=== PATIENT | male | born 1965 | race Hispanic/Latino ===

== ENCOUNTER 2019-03-26 11:21 | Emergency (ER) | payer OTHER ==
[~2019-03-26] VITALS: Ht 170.2 cm; Wt 99.8 kg
[2019-03-26] MEDS ORDERED: SODIUM CHLORIDE 0.9% 1000ML 1,000 ML IV STA (11:48)
[2019-03-26] MEDS ORDERED: KETOROLAC TROMETHAMINE 30 MG/ML VIAL IV STA (11:48)
[2019-03-26 12:04] LABS: BASOPHILS % 0.4 % (0.0-1.0); EOSINOPHILS # (AUTO) 0.5 (0.0-0.4); EOSINOPHILS % 4.1 % (0.0-6.0); HEMATOCRIT 43.3 % (38.2-49.6); HEMOGLOBIN 14.4 g/dL (14.0-18.0); LYMPHOCYTES # (AUTO) 3.9 (1.0-3.2); LYMPHOCYTES % 34.1 % (18.0-39.1); MEAN CORPUSCULAR HEMOGLOBIN 30.6 pg (28-32); MEAN CORPUSCULAR HGB CONC 33.3 g/dL (31-35); MEAN CORPUSCULAR VOLUME 91.9 fL (81-99); MONOCYTES # (AUTO) 1.1 (0.2-0.8); MONOCYTES % 9.4 % (4.4-11.3); NEUTROPHILS # (AUTO) 5.9 (2.1-6.9); NEUTROPHILS % 51.7 % (38.7-80.0); PLATELET COUNT 202 x10e3/uL (140-360); RED BLOOD COUNT 4.71 x10e6/uL (4.3-5.7); RED CELL DISTRIBUTION WIDTH 12.8 % (11.7-14.4)
[2019-03-26 12:06] LABS: BILIRUBIN,URINE NEGATIVE (NEGATIVE); CLARITY,URINE CLEAR (CLEAR); COLOR,URINE YELLOW (YELLOW); KETONES,URINE NEGATIVE (NEGATIVE); LEUKOCYTE ESTERASE ,URINE TRACE (NEGATIVE); NITRITE,URINE NEGATIVE (NEGATIVE); PROTEIN,URINE DIPSTICK NEGATIVE (NEGATIVE); URINE UROBILINOGEN 0.2 mg/dL (0.2 - 1)
[2019-03-26 12:20] LABS: WBC,URINE (MAN) 21-50 /HPF (0-5)
[2019-03-26 12:21] LABS: BACTERIA,URINE FEW /HPF; EPITHELIAL CELLS,URINE RARE /LPF; RBC,URINE 0-5 /HPF (0-5)
[2019-03-26 12:27] LABS: ALBUMIN 3.7 g/dL (3.5-5.0); ALBUMIN/GLOBULIN RATIO 1.3 (0.8-2.0); CALCIUM 9.2 mg/dL (8.4-10.2); CREATININE, SERUM 1.33 mg/dL (0.72-1.25); INR 0.92; PROTHROMBIN TIME 12.8 seconds (11.9-14.5)
[2019-03-26 12:28] LABS: PARTIAL THROMBOPLASTIN TIME 33.7 seconds (23.8-35.5)
[2019-03-26 12:34] LABS: CREATINE KINASE MB 2.4 ng/mL (0-5.0)
--- NOTE | 2019-03-26 13:02 | Diagnostic Imaging Report ---
EXAM: CT Abdomen and Pelvis WITHOUT intravenous contrast INDICATION: Flank pain COMPARISON: None. TECHNIQUE: Abdomen and pelvis were scanned utilizing a multidetector helical scanner from the lung base to the pubic symphysis without administration of IV contrast. Coronal and sagittal reformations were obtained. IV CONTRAST: None ORAL CONTRAST: Water COMPLICATIONS: None RADIATION DOSE: Total DLP: 768.3 mGy*cm Dose modulation, iterative reconstruction, and/or weight based adjustment of the mA/kV was utilized to reduce the radiation dose to as low as reasonably achievable. FINDINGS: LOWER THORAX: Normal. HEPATOBILIARY: No focal liver lesion. Status post cholecystectomy. SPLEEN: No splenomegaly. PANCREAS: No focal masses or ductal dilatation. ADRENALS: No adrenal nodules. KIDNEYS/URETERS: 6 mm right distal ureter calculus just proximal to the ureterovesical junction with associated upstream mild hydroureteronephrosis. No left renal calculi. No left hydronephrosis or hydroureter. PELVIC ORGANS/BLADDER: Prostatomegaly to 5.0 cm. Coarse calcifications in the prostate. PERITONEUM / RETROPERITONEUM: No free air or fluid. LYMPH NODES: No lymphadenopathy. VESSELS: Unremarkable. GI TRACT: Diverticulosis without CT evidence of diverticulitis. No abnormal bowel thickening. No bowel obstruction. Normal appendix. BONES AND SOFT TISSUES: No acute osseous injury. No suspicious lytic or blastic lesions. IMPRESSION: 6 mm right distal ureteral calculus just proximal to the ureterovesical junction with associated upstream mild right hydroureteronephrosis. No left renal calculi or left hydronephrosis. Prostatomegaly. Signed by: Karolyn Truong MD on 03/26/2019 12:59 PM
[2019-03-26] MEDS ORDERED: CEFTRIAXONE SOD 1 GM/NS 50 ML 50 ML IV ONE (13:45)
[2019-03-26] MEDS ORDERED: MORPHINE SULFATE 2 MG/ML SYR 1ML IV STA (13:48)
[2019-03-26] MEDS ORDERED: ONDANSETRON HCL INJ 2MG/ML 2ML 2 MG/ML VIAL IV ONE (13:48)
[2019-03-26] MEDS ORDERED: MORPHINE SULFATE INJ 4 MG/ML INJ 1ML IV ONE (14:00)
[2019-03-26 14:13] VITALS: BP 136/59
== END 2019-03-26 14:40 | disposition home or self-care (01) ==
LOC: ER 11:21
DX: R10.32 Left lower quadrant pain (principal); N20.1 Calculus of ureter; N30.90 Cystitis, unspecified without hematuria; K57.31 Diverticulosis of large intestine without perforation or abscess with bleeding; B17.9 Acute viral hepatitis, unspecified
CPT/HCPCS: 36415; 74176; 80053; 81001; 82550; 82553; 84484; 85025; 85610; 85730; 87086; 99284; J0696; J1885; J2270; J2405; J7030

== ENCOUNTER 2024-04-11 11:40 | Emergency (ER) | payer OTHER ==
[~2024-04-11] VITALS: Ht 170.2 cm; Wt 106.6 kg
[~2024-04-11 11:40] MED LIST: ASPIRIN EC81 MG PO; ATENOLOL50 MG PO; ATORVASTATIN CA20 MG PO; CLOPIDOGREL75 MG PO; DICYCLOMINE HCL10 MG PO; LOSARTAN POTASS25 MG PO; METFORMIN HCL500 MG PO; PANTOPRAZOLE SO40 MG PO; PREDNISONE10 MG PO; VITAMIN D PO
[2024-04-11 11:48] VITALS: PULSE 70; RESP 19; TEMP 97.7
[2024-04-11] MEDS: HYDROCODONE/APAP 5MG-325MG TAB PO ONE (13:22)
[2024-04-11 15:01] VITALS: BP 137/65; PULSE 71; RESP 18; TEMP 98.3; O2SAT 100
== END 2024-04-11 14:08 | disposition home or self-care (01) ==
LOC: FSED 12:10
DX: R07.89 Other chest pain (principal); X50.9XXA Other and unspecified overexertion or strenuous movements or postures, initial encounter; Y92.89 Other specified places as the place of occurrence of the external cause; I10 Essential (primary) hypertension; E78.5 Hyperlipidemia, unspecified; K21.9 Gastro-esophageal reflux disease without esophagitis; G70.00 Myasthenia gravis without (acute) exacerbation; Z87.442 Personal history of urinary calculi; Z86.73 Personal history of transient ischemic attack (TIA), and cerebral infarction without residual deficits
CPT/HCPCS: 71250; 99284